=== PATIENT | male | born 1960 | race Caucasian/White ===

== ENCOUNTER 2021-02-03 19:01 | Emergency (ER) | payer MEDICARE, SELFPAY ==
[2021-02-03 19:02] VITALS: BP 102/73; PULSE 97; RESP 18; TEMP 35.9; O2SAT 98; BMI 22.6
--- NOTE | 2021-02-03 20:25 | CT_ITS ---
STUDY: CT ABDOMEN AND PELVIS WITH CONTRAST REASON FOR EXAM: Male, 60 years old. Abdominal pain -- IV PO Contrast RADIATION DOSAGE (If Supplied By Facility): CTDIvol = ( 12.89 ) mGy, DLP = ( 477.21 ) mGycm TECHNIQUE: Transaxial images were obtained from the dome of the diaphragm to the symphysis pubis without oral contrast. Oral and IV Gastrografin and 100mL Isovue-370 was administered. Sagittal and coronal images were reconstructed. Individualized dose optimization techniques were used for this CT. COMPARISON: None. FINDINGS: Bibasilar infiltrates. The visualized portions of the heart are within normal limits. Normal liver. Normal gallbladder and extrahepatic biliary system. Normal spleen. Normal pancreas. Normal bilateral adrenal glands. Normal right kidney. Normal left kidney. Normal visualized stomach. Normal small intestine. Sigmoid diverticulosis without finding to suggest diverticulitis. Enteric contrast reaches the transverse colon. The appendix is visualized and appears normal. Normal abdominal aorta. Normal inferior vena cava. Normal retroperitoneum. Normal urinary bladder. Left greater than right fat-containing inguinal hernias without associated fat stranding to suggest strangulation. Normal osseous structures. CT/Abdomen/Pelvis WITH Contrast IMPRESSION: Bibasilar infiltrates concerning for multifocal pneumonia. Left greater than right fat-containing inguinal hernias without finding to suggest strangulation. No acute abnormal finding in the abdomen or pelvis. Electronically Signed: Vini Alanis MD at 22:24 EDT Tel , Service support ,
[2021-02-03] MEDS: Morphine 4 MG/ML Syringe IV (20:47)
[2021-02-03 20:51] LABS: Absolute Lymphocyte Count 0.67 X10^3/uL (0.83-4.51); Absolute Neutrophil Count 5.1 X10^3/uL (2.0-7.7); Basophil# 0.02 X10^3/uL; Basophil% 0.3 % (0-1); Hematocrit 48.1 % (40-54); Hemoglobin 16.2 g/dL (13.0-16.5); Lymphocyte # 0.67 X10^3/ul (0.83-4.51); Lymphocyte % 10.7 % (19-41); Mean Corp Hgb Conc 33.7 g/dL (32-36); Mean Corpuscular Hgb 30.2 pg (27.0-32.0); Mean Corpuscular Volume 89.7 fL (80-94); Mean Platelet Vol. 11.6 fl (6.2-12.0); Monocyte# 0.47 X10^3/uL; Monocyte% 7.5 % (0-10); NRBC Flagged by Analyzer 0 % (0-5); Neutrophil # 5.07 X10^3/uL (2.7-7.7); Neutrophil % 80.9 % (47-70); POSITIVE MORPHOLOGY YES; Platelet Count 143 K/mm3 (150-450); RBC Distribution Width CV 13.7 % (11.6-14.6); Red Blood Count 5.36 M/mm3 (4.6-6.2); White Blood Count 6.3 K/mm3 (4.4-11.0)
[2021-02-03 20:59] LABS: Differential Indicated SCAN CRITERIA MET
[2021-02-03 21:12] LABS: ALB/GLOB Ratio 0.5 RATIO (0.9-2.4); AST(SGOT) 61 U/L (15-37); Alanine Aminotransfer ALT/SGPT 44 U/L (16-61); Albumin, Serum 2.2 g/dL (3.2-5.0); Alkaline Phosphatase 61 U/L (45-117); Anion Gap 10 (5-15); Anisocytosis RARE; BUN 30 mg/dL (7-18); BUN/Creat Ratio 21.9 RATIO (10-20); Calcium,Total 8.7 mg/dL (8.5-10.1); Chloride 98 mmol/L (98-107); Creatinine, Serum 1.37 mg/dL (0.70-1.30); EST Glomerular Filtration Rate 56 mL/min (>60); Est Glom Filt Rate - Afr Amer 68 mL/min (>60); Globulin 4.8 g/dL (2.2-4.2); Glucose 170 mg/dL (74-106); Lipase 449 U/L (73-393); Platelet Estimate ADEQUATE (ADEQ); Potassium 3.9 mmol/L (3.5-5.1); Red Cell Morphology N CHROM NORMAL (NORM C&C); Sodium Level 135 mmol/L (136-145)
[2021-02-03 21:30] VITALS: BP 118/69; PULSE 113; RESP 12; O2SAT 92
[2021-02-03 21:32] LABS: Mucous, Urine 0 SEEN /hpf (<or=2+); Red Blood Cells-Urine 0 SEEN /hpf (0-5); Squamous Epithelial Cells - UA 0 SEEN /hpf (0-5)
[2021-02-03 21:34] LABS: Color, Urine Yellow (Yellow); Glucose, Dipstick Normal (Normal); Ketone-Dipstick 5 mg/dl (Negative); Leukocyte Esterase-Dipstick Negative /ul (Negative); Nitrite-Dipstick Negative (Negative); Occult Blood-Urine 250 /ul (Negative); Protein-Dipstick 500 mg/dl (Negative); Urine Bilirubin Dipstick Negative (Negative); Urine Clarity Clear (Clear); Urine Urobilinogen Normal (Normal)
[2021-02-03 21:39] LABS: Fine Granular Cast- Urine 10-25 SEEN /lpf (0-5)
[2021-02-03 21:40] LABS: White Blood Cells 0-5 SEEN /hpf (0-5)
[2021-02-03 21:42] LABS: Bacteria RARE /hpf (None Seen)
[2021-02-03 23:00] VITALS: BP 113/74; PULSE 111; RESP 16; O2SAT 93
--- NOTE | 2021-02-03 23:29 | ED.VIS.GI ---
HPI HPI - GI History of Present Illness Chief Complaint: Abd Pain Informant: patient Abdominal Pain/Flank Pain Onset: Weeks (1) Context: Gradual Onset Timing: Continuous Quality: Aching, Sharp and Stabbing Location: Diffuse Worsened by: Movement Relieved by: Nothing Nausea/Vomiting/Emesis GI Symptom: Negative for Nausea and Vomiting Diarrhea/Melena/Hematochezia GI Symptom: Positive for Diarrhea; Negative for Melena and Hematochezia Narrative Narrative: Patient presents with abdominal pain and back pain that has been getting worse over the past week. Patient states his pain is sharp and stabbing. Patient states it is also aching at times. Patient states his pain is diffuse across his abdomen. Patient states it is worse with movement. Patient states he bent forward and felt pain in his upper abdomen and low back. Patient denies any nausea or vomiting. Patient admits to some diarrhea but denies any melena or hematochezia. Patient denies any urinary complaints. Patient denies any shortness of breath or cough. Patient denies any chest pain. [facility] Medical History (Updated 02/04/21 @ 00:[address] Alfred Galvez DO) Coronary artery disease Home Medications aspirin [Aspir-81] 81 mg PO DAILY 02/03/21 [History Last Taken Unknown] Allergy/AdvReac Type Severity Reaction Status Date / Time No Known Allergies Allergy Verified 02/03/21 19:05 Surgical History S/P CABG x 3 Social History Smoking Status: Current every day smoker tobacco type: cigarettes ROS ROS ED Constitutional Constitutional ED: Denies chills or fever(s) Eyes Eyes: Denies blurry vision or change in vision ENT ENT ED: Denies rhinorrhea or sore throat Cardiovascular Cardiovascular: Denies chest pain or palpitations Respiratory/Chest Respiratory/Chest: Denies cough or dyspnea Gastrointestinal Gastrointestinal: Reports abdominal pain; Denies nausea or vomiting Genitourinary Genitourinary ED: Denies dysuria or hematuria Musculoskeletal Musculoskeletal: Reports back pain; Denies neck pain Integumentary Denies abscess or rash Neurologic Neurologic: Denies headache(s) or weakness Allergic/Immunologic Allergic/Immunologic ED: Denies mouth swelling or urticaria EXAM Physical Exam Const Vital Signs: 02/03/21 19:02 02/03/21 21:30 02/03/21 23:00 Temperature 96.7 F L Temperature Source Temporal Pulse Rate 97 113 H 111 H Respiratory Rate 18 12 16 Blood Pressure 102/73 118/69 113/74 Blood Pressure Mean 82 85 87 Pulse Ox 98 92 93 Oxygen Delivery Method Room Air Room Air Room Air 02/03/21 23:37 Temperature Temperature Source Pulse Rate Respiratory Rate Blood Pressure Blood Pressure Mean Pulse Ox 94 Oxygen Delivery Method Positive well nourished and well developed General Appearance ED: well developed HEENT Reports moist mucous membranes Neck supple and no JVD Resp normal respiratory effort and clear to auscultation bilaterally Cardio regular rate, regular rhythm and no murmurs GI normal to inspection, nondistended, normoactive bowel sounds and non-distended Auscultation: normoactive bowel sounds Palpation: soft and tender epigastric, LLQ, RLQ, LUQ, RUQ, periumbilical and suprapubic; Negative for guarding or rebound tenderness present Extremity normal to inspection General Extremety ED: Negative for edema or tenderness General Extremity: Negative for edema Neuro oriented x3, CN's II-XII intact bilaterally and no sensory deficits noted Sensorium / Orientation: alert Motor Exam: strength 5/5 throughout Psych mental status grossly normal Skin no rashes or lesions noted MDM MDM MDM Narrative Medical decision making narrative: CBC and comprehensive metabolic profile were obtained and were essentially within normal limits. Lipase was slightly elevated at 449. Urinalysis does not show any evidence of urinary tract infection. CT scan of the abdomen pelvis was obtained. There are bibasilar infiltrates noted. There are bilateral inguinal hernias but no evidence of strangulation. The hernias only contain fat. This was interpreted by the radiologist and reviewed by myself. Because of the bibasilar infiltrates, COVID-19 rapid antigen was obtained. This came back positive. Patient and family were advised of his results. Patient was instructed to quarantine for 10 days. Patient was instructed to follow-up with his primary care physician. Patient was instructed return if worse in any way. Patient understood and was agreeable with the plan. All questions were answered. Lab Data Attestation: I reviewed the patient's lab results. Labs: Laboratory Results - last 24 hr 02/03/21 02/03/21 02/03/21 20:45 20:45 21:30 WBC 6.3 RBC 5.36 Hgb 16.2 Hct 48.1 MCV 89.7 MCH 30.2 MCHC 33.7 RDW Std Deviation 45.0 H RDW Coeff of Michelle 13.7 Plt Count 143 L MPV 11.6 Immature Gran % (Auto) 0.600 Neut % (Auto) 80.9 H Lymph % (Auto) 10.7 L [place] % (Auto) 7.5 Eos % (Auto) 0.0 Baso % (Auto) 0.3 Absolute Neuts (auto) 5.1 Absolute Lymphs (auto) 0.67 L Nucleated RBC % 0 Platelet Estimate ADEQUATE RBC Morphology N CHROM Anisocytosis RARE Sodium 135 L Potassium 3.9 Chloride 98 Carbon Dioxide 27.0 Anion Gap 10 BUN 30 H Creatinine 1.37 H Estim Creat Clear Calc 51.50 Est GFR (MDRD) Af Amer 68 Est GFR (MDRD) Non-Af 56 L BUN/Creatinine Ratio 21.9 H Glucose 170 H Calcium 8.7 Total Bilirubin 0.60 AST 61 H ALT 44 Alkaline Phosphatase 61 Total Protein 7.0 Albumin 2.2 L Globulin 4.8 H Albumin/Globulin Ratio 0.5 L Lipase 449 H Urine Color Yellow Urine Clarity Clear Urine pH 6.0 Ur Specific [place] 1.020 Urine Protein 500 H Urine Glucose (UA) Normal Urine Ketones 5 H Urine Occult Blood 250 H Urine Nitrite Negative Urine Bilirubin Negative Urine Urobilinogen Normal Ur Leukocyte Esterase Negative Urine RBC 0 SEEN Urine WBC 0-5 SEEN Ur Squamous Epith Cells 0 SEEN Urine Bacteria RARE Fine Granular Casts 10-25 SEEN Urine Mucus 0 SEEN Radiography Diagnostic Testing: Radiology Impression Abdomen/Pelvis CT 02/03/21 20:25 IMPRESSION: Bibasilar infiltrates concerning for multifocal pneumonia. Left greater than right fat-containing inguinal hernias without finding to suggest strangulation. No acute abnormal finding in the abdomen or pelvis. Electronically Signed: Vini Alanis MD at 22:24 EDT Tel , Service support , Discharge Plan Triage Chief Complaint: Abd Pain ED Provider: Alfred Galvez Dx/Rx/DC Orders Clinical Impression: Pneumonia due to COVID-19 virus Instructions: Coronavirus Disease 2019 (COVID-19): Overview Prescriptions: No Action aspirin [Aspir-81] 81 mg Tablet,Delayed Release (Dr/Ec) 81 mg PO DAILY RF: 0 Primary Care Provider: Care Physician,No Primary Referrals: Angel Armendariz MD [STAFF PHYSICIAN] - 5-7 Days Care Physician,No Primary [Primary Care Provider] - Disposition Disposition: Home, Self Care Discharge Date/Time: 02/03/21 23:37
[2021-02-03 23:37] VITALS: O2SAT 94
== END 2021-02-03 23:37 | disposition home or self-care (01) ==
PROVIDERS: Emergency Provider Emergency Medicine
DX: U07.1 COVID-19 (principal); J12.82 Pneumonia due to coronavirus disease 2019; F17.210 Nicotine dependence, cigarettes, uncomplicated; I25.10 Atherosclerotic heart disease of native coronary artery without angina pectoris; Z79.82 Long term (current) use of aspirin
CPT/HCPCS: 74177; 80053; 81001; 83690; 85025; 87426; 96374; 99284; Q9967; A4216